=== PATIENT | male | born 1975 | race African-American/Black ===

== ENCOUNTER 2018-08-08 17:15 | Emergency (ER) | payer MEDICAID ==
[2018-08-08 18:33] LABS: APPEARANCE,URINE CLEAR; BILIRUBIN,URINE NEGATIVE (NEGATIVE); COLOR,URINE YELLOW; GLUCOSE, URINE NEGATIVE (NEGATIVE); KETONES,URINE 20 mg/dL (NEGATIVE); LEUKOCYTE ESTERASE,URINE NEGATIVE (NEGATIVE); NITRITE,URINE NEGATIVE (NEGATIVE); PROTEIN,URINE NEGATIVE (NEGATIVE); URINE SPECIFIC GRAVITY 1.023
[2018-08-08 18:35] LABS: ABSOLUTE LYMPHOCYTES (AUTO) 0.8 10^3/uL (0.5-4.7); ABSOLUTE MONOCYTES (AUTO) 0.5 10^3/uL (0.1-1.4); ABSOLUTE NEUT (AUTO) 6.7 10^3/uL (1.7-8.2); BASOPHILS % (AUTO) 0.3 % (0-2); EOSINOPHILS % (AUTO) 0.1 % (0-6); HEMATOCRIT 42.5 % (37.9-51.0); HEMOGLOBIN 14.5 g/dL (13.5-17.0); LYMPHOCYTES % (AUTO) 9.8 % (13-45); MEAN CORPUSCULAR HEMOGLOBIN 32.2 pg (27.0-33.4); MEAN CORPUSCULAR HGB CONC 34.1 g/dL (32.0-36.0); MEAN CORPUSCULAR VOLUME 95 fl (80-97); MONOCYTES % (AUTO) 6.1 % (3-13); PLATELET COUNT 202 10^3/uL (150-450); RED CELL DISTRIBUTION WIDTH 13.9 % (11.5-14.0); SEGMENTED NEUTROPHILS % (AUTO) 83.7 % (42-78); TOTAL CELLS COUNTED % (AUTO) 100 %; WHITE BLOOD COUNT 8.1 10^3/uL (4.0-10.5)
[2018-08-08 18:56] LABS: ALANINE AMINOTRANSFERASE 41 U/L (21-72); ALKALINE PHOSPHATASE 49 U/L (38-126); ANION GAP 8 (5-19); ASPARTATE AMINO TRANSFERASE 42 U/L (17-59); BILIRUBIN,DIRECT 0.2 mg/dL (0.0-0.4); BILIRUBIN,TOTAL 0.6 mg/dL (0.2-1.3); BLOOD UREA NITROGEN 16 mg/dL (7-20); CALCIUM 9.6 mg/dL (8.4-10.2); CARBON DIOXIDE 26 mmol/L (22-30); CHLORIDE 105 mmol/L (98-107); GLUCOSE 97 mg/dL (75-110); POTASSIUM 3.9 mmol/L (3.6-5.0); SODIUM 139.4 mmol/L (137-145); TOTAL PROTEIN 7.5 g/dL (6.3-8.2)
[2018-08-08 18:57] LABS: ACETAMINOPHEN < 10 ug/mL (10-30); ALCOHOL < 10 mg/dL (NONE DETECTED); SALICYLATE < 1.0 mg/dL (2.0-20.0); URINE AMPHETAMINES SCREEN NEGATIVE; URINE BARBITURATES SCREEN NEGATIVE; URINE BENZODIAZEPINES SCREEN NEGATIVE; URINE COCAINE SCREEN NEGATIVE; URINE MARIJUANA (THC) SCREEN UNCONFIRMED POSITIVE; URINE METHADONE SCREEN NEGATIVE; URINE PHENCYCLIDINE SCREEN NEGATIVE
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
[2018-08-08] MEDS ORDERED: OLANZAPINE INJ/PF 10 MG SDV IM ONE (20:36)
[2018-08-08] MEDS ORDERED: CHLORPROMAZINE HCL INJ 25 MG/1 ML AMPULE IM ONE (20:37)
--- NOTE | 2018-08-08 20:56 | EKG REPORT ---
SEVERITY:- ABNORMAL ECG - SINUS RHYTHM RIGHT ATRIAL ABNORMALITY : Confirmed by: Jaydon Barnes 08-Aug-2018 20:54:19
[2018-08-08] MEDS: BENZTROPINE MESYLATE INJ 2 MG/2 ML AMPULE IM SCH (23:24)
--- NOTE | 2018-08-09 09:26 | ER Document Report ---
Doctor's Note Notes: 08/09/18 09:25 42-year-old male who presents with agitation, hallucinations, being noncompliant with medications. Vital signs as recorded. Labs as recorded. Positive for marijuana. Patient was given medications to calm him down last evening. Patient is currently calm and cooperative at this time. Awaiting psychiatric evaluation.
[2018-08-09] MEDS: OLANZAPINE 5 MG TABLET PO SCH ×2 (10:48→18:44)
[2018-08-09] MEDS: CHLORPROMAZINE HCL 50 MG TABLET PO SCH ×2 (10:48→18:44)
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
[2018-08-09] MEDS ORDERED: LORAZEPAM INJ 2 MG/1 ML VIAL IM ONE (14:13)
[2018-08-09] MEDS ORDERED: MIDAZOLAM 2 MG/2 ML INJ IM ONE (19:54)
[2018-08-09] MEDS ORDERED: DIPHENHYDRAMINE HCL 50 MG/ML VIAL IM ONE (19:54)
[2018-08-09] MEDS ORDERED: CHLORPROMAZINE HCL 50 MG TABLET PO SCH (20:25)
[2018-08-09] MEDS ORDERED: OLANZAPINE 5 MG TABLET PO SCH (20:27)
[2018-08-09] MEDS: BENZTROPINE MESYLATE INJ 2 MG/2 ML AMPULE IM SCH (21:20)
[2018-08-10] MEDS ORDERED: CHLORPROMAZINE HCL INJ 25 MG/1 ML AMPULE IM ONE (01:13)
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
[2018-08-10] MEDS: CHLORPROMAZINE HCL 50 MG TABLET PO SCH (11:10)
[2018-08-10] MEDS: OLANZAPINE 5 MG TABLET PO SCH ×2 (11:10→17:56)
--- NOTE | 2018-08-10 21:54 | ER Document Report ---
Doctor's Note Notes: 08/10/18 21:54 Patient continues to threaten staff, threatening nurse Lana repeatedly. He is currently acting in a dangerous manner for both staff and his own safety. He will be placed in physical restraints for the safety of our staff as well as his own safety.
[2018-08-10] MEDS: BENZTROPINE MESYLATE INJ 2 MG/2 ML AMPULE IM SCH (23:08)
[2018-08-10] MEDS: FLUPHENAZINE HCL 2.5 MG TABLET PO SCH (23:08)
[2018-08-11] MEDS: FLUPHENAZINE HCL 2.5 MG TABLET PO SCH ×2 (08:06→21:41)
[2018-08-11] MEDS: OLANZAPINE 5 MG TABLET PO SCH (09:57)
--- NOTE | 2018-08-11 10:28 | ER Document Report ---
Doctor's Note Notes: 08/11/18 10:27 Rounds: Chart reviewed and patient interviewed. Patient is being evaluated for agitation and hallucinations. He is currently being restrained with leather restraints. He is IVC. Lab studies were essentially normal except for being positive for marijuana. Vital signs of all been essentially normal. Patient is currently being treated with Zyprexa 5 mg twice a day and Cogentin 1 mg daily. Thorazine has been added to that regimen. Patient appears to be medically stable for transfer or discharge. Ailin Barajas MD
[2018-08-11] MEDS ORDERED: FLUPHENAZINE DECANOATE INJ 125 MG/5 ML VIAL IM ONE (12:24)
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
[2018-08-11] MEDS: BENZTROPINE MESYLATE INJ 2 MG/2 ML AMPULE IM SCH (21:10)
[2018-08-11] MEDS ORDERED: LORAZEPAM INJ 2 MG/1 ML VIAL IM ONE (23:02)
[2018-08-11] MEDS ORDERED: HALOPERIDOL LACTATE INJ 5 MG/1 ML VIAL IM ONE (23:03)
[2018-08-11] MEDS ORDERED: DIPHENHYDRAMINE HCL 50 MG/ML VIAL IM ONE (23:04)
[2018-08-11] MEDS ORDERED: LORAZEPAM 1 MG TABLET PO ONE (23:33)
[2018-08-11] MEDS ORDERED: HALOPERIDOL 5 MG TABLET PO ONE (23:33)
[2018-08-12] MEDS ORDERED: DIPHENHYDRAMINE HCL 50 MG/ML VIAL IM ONE (01:48)
[2018-08-12] MEDS ORDERED: ACETAMINOPHEN 325 MG TABLET PO ONE (06:24)
[2018-08-12] MEDS: FLUPHENAZINE HCL 2.5 MG TABLET PO SCH ×2 (07:58→22:48)
--- NOTE | 2018-08-12 09:55 | ER Document Report ---
Doctor's Note Notes: 08/12/18 09:54 Patient seen and evaluated by myself. Vital signs are stable. No issues overnight per nursing. Patient has a history of delusions. He has been manic while in the emergency department. Behavioral health was consulted and made medication recommendations. We are unable to stabilize him on the medications. They feel that the patient now needs to be treated inpatient.
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
--- NOTE | 2018-08-12 19:39 | EKG REPORT ---
SEVERITY:- NORMAL ECG - SINUS RHYTHM : Confirmed by: Shaye Dejesus MD 12-Aug-2018 19:39:06
[2018-08-12] MEDS: BENZTROPINE MESYLATE INJ 2 MG/2 ML AMPULE IM SCH (22:48)
[2018-08-13] MEDS: FLUPHENAZINE HCL 2.5 MG TABLET PO SCH (08:28)
--- NOTE | 2018-08-13 09:39 | ER Document Report ---
Doctor's Note Notes: 08/13/18 09:38 Patient seen and examined, vital signs reviewed. Patient at this time, continues to be in a manic state, pressured speech, rambling on about different situations and past stories, tangential thinking. Difficult to redirect. Patient has been having behavioral issues during his ED course, as noted above, prior notes reviewed. Discussed with behavioral health team, he was on Prolixin, however did not seem to be working for him, we will switch him to Thorazine 100 mg every 6 IM, and Rosalesentin did 2 mg daily IM, as there is concern of possible noncompliance, will also add clonidine 0.1 mg patch daily. We will continue to monitor the patient, adjust medications as needed, to control his manic state.
[2018-08-13] MEDS ORDERED: CLONIDINE 0.1 MG/24 HR PATCH.TDWK TD ONE (09:41)
--- NOTE | 2018-08-13 10:05 | PSYCHOLOGICAL NOTE ---
Psych Note - Psych Note Date seen by psych provider: 08/13/18 Time seen by psych provider: 17:00 Psych Note: Reason for consult:IVC Contact Permissions: Mother Jolene Lopez [phone] Patient is a 42 year old male who is in the ED on IVC for delusions, flight of ideas, pressured speech, destroying property and having been off medication for 4 months. Chart Review Conducted: Toxicology screen was positive for THC. Patient was restrained once on 08/10/18 at 22:00 until 08/11/2018 at 12:30 for not following directions, leaving his room, making inappropriate sexual gestures and comments, being verbally aggressive with staff and demonstrating aggressive behaviors (ie making a fist with one hand and hitting his other open hand). Medication recommendations per [facility]'s psychiatric provider, Dr. Palafox are as follows: Please discontinue Prolixin Continue Cogentin 2mg QHS Please start Thorazine 100mg every 6 hours Please start Clonidine patch 0.1mg once every 24 hours Diagnosis: 296.80 (F31.9) Unspecified Bipolar and Related Disorder by History per mother's collateral from 05/09/11 ED visit 292.9 (F12.99) Unspecified Cannabis Related Disorder Impression\plan: There is concern the patient has been cheeking his medications or a paradoxical effect has resulted. New medication recommendations have been provided. Clinician notes [facility] staff report patient is redirectable but has significant impulse control, and requires high level of monitoring due to his hyperactivity level. Patient re-evaluated Patient was woken up by clinician. Patient was noted to have difficulty sleeping however he has been sleeping all day today. Patient denies thoughts of wanting to harm himself or others or any difficulty with seeing or hearing things that confuse her scare him. Patient is able to conduct an organized linear conversation. He reports that he plans to return home to his mother's house confirms that he will continue taking the medication will follow up with outpatient mental health services. Patient is not demonstrating any behaviors indicating he is responding to internal stimuli. Patient is recommended for rescind of IVC and is cleared from acute psychiatric services and is recommended to follow-up with outpatient mental services. He has been provided a resource list of area providers including mobile crisis contact information. Clinician notes patient's behaviors throughout [facility] ED stay strongly indicates behavioral aspects. Clinician discussed with patient appropriate behaviors. Dr. Harp was consulted and the care management this patient; attending physicians in agreement with recommendations and disposition.
[2018-08-13] MEDS: CHLORPROMAZINE HCL INJ 25 MG/1 ML AMPULE IM SCH ×2 (10:11→12:54)
[2018-08-13 17:40] VITALS: BP 121/73
== END 2018-08-13 17:32 | disposition home or self-care (01) ==
LOC: ER 17:15
DX: R44.3 Hallucinations, unspecified (principal); R45.1 Restlessness and agitation; F31.9 Bipolar disorder, unspecified; F12.99 Cannabis use, unspecified with unspecified cannabis-induced disorder; F17.200 Nicotine dependence, unspecified, uncomplicated
CPT/HCPCS: 93005 ×2; 99285; 96372; 96374; 36415; 80307 ×4; 85025; 80053; 81001; 93010 ×2; J3490 ×12; J2250; J0515 ×5; J2680; J3230 ×3; J1200 ×2; J2060

== ENCOUNTER 2019-04-22 01:25 | Emergency (ER) | payer MEDICAID ==
[2019-04-22] MEDS ORDERED: HALOPERIDOL LACTATE INJ 5 MG/1 ML VIAL IM PRN (02:08)
[2019-04-22] MEDS ORDERED: LORAZEPAM INJ 2 MG/1 ML VIAL IM PRN (02:08)
[2019-04-22] MEDS ORDERED: DIPHENHYDRAMINE HCL 50 MG/ML VIAL IM PRN (02:08)
[2019-04-22 02:28] LABS: ABSOLUTE EOSINOPHILS # (AUTO) 0.2 10^3/uL (0.0-0.6); ABSOLUTE LYMPHOCYTES (AUTO) 1.5 10^3/uL (0.5-4.7); ABSOLUTE MONOCYTES (AUTO) 0.4 10^3/uL (0.1-1.4); ABSOLUTE NEUT (AUTO) 2.3 10^3/uL (1.7-8.2); BASOPHILS % (AUTO) 1.1 % (0-2); EOSINOPHILS % (AUTO) 4.9 % (0-6); LYMPHOCYTES % (AUTO) 33.6 % (13-45); MEAN CORPUSCULAR HEMOGLOBIN 31.4 pg (27.0-33.4); MEAN CORPUSCULAR HGB CONC 33.4 g/dL (32.0-36.0); MEAN CORPUSCULAR VOLUME 94 fl (80-97); MONOCYTES % (AUTO) 8.7 % (3-13); PLATELET COUNT 201 10^3/uL (150-450); RED BLOOD COUNT 4.15 10^6/uL (4.35-5.55); RED CELL DISTRIBUTION WIDTH 14.2 % (11.5-14.0); SEGMENTED NEUTROPHILS % (AUTO) 51.7 % (42-78); TOTAL CELLS COUNTED % (AUTO) 100 %; WHITE BLOOD COUNT 4.4 10^3/uL (4.0-10.5)
--- NOTE | 2019-04-22 02:28 | ER Document Report ---
ED Psych Disorder / Suicide - General Stated Complaint: IVC Time Seen by Provider: 04/22/19 02:06 Mode of Arrival: Carried Information source: Patient, Law Enforcement Cannot obtain history due to: Uncooperative Notes: HISTORY OF PRESENT ILLNESS: Patient is a 43-year-old male with a past medical history of hernia, bipolar disorder, substance abuse who presents with agitation and aggression with possible both suicidal and homicidal ideations. Patient was found by police to be belligerent and agitated, was making threatening statements that he was going to harm himself and was going to throw knives at people, also reported that he heard voices and was paranoid. Patient was involuntarily committed by police prior to arrival. Onset: Prior to arrival Provocation: Unknown, possibly substance abuse Quality: Hallucinations, suicidal/homicidal ideation Radiation: None Severity: Moderate Timing: Constant SI/HI: Yes Hallucinations: Yes Current therapist: None Current treatment: Yes, Depakote and antipsychotics REVIEW OF SYSTEMS: CONSTITUTIONAL : Denies fever or chills, no sweats. Denies recent illness. EENT: Denies eye, ear, throat, or mouth pain or symptoms. Denies nasal or sinus congestion. CARDIOVASCULAR: Denies chest pain. RESPIRATORY: Denies cough, cold, or chest congestion. Denies shortness of breath, difficulty breathing, or wheezing. GASTROINTESTINAL: Denies abdominal pain. Denies nausea, vomiting, or diarrhea. Denies constipation. GENITOURINARY: Denies difficulty urinating, painful urination, burning, frequency, or blood in urine. MUSCULOSKELETAL: Denies neck or back pain or joint pain or swelling. SKIN: Denies rash or skin lesions. HEMATOLOGIC : Denies easy bruising or bleeding. LYMPHATIC: Denies swollen, enlarged glands. NEUROLOGICAL: Denies altered mental status or loss of consciousness. Denies headache. Denies weakness or paralysis or loss of use of either side. Denies problems with gait or speech. Denies sensory or motor loss. PSYCHIATRIC: Positive for homicidal and suicidal ideations. Positive for substance abuse.. Denies anxiety or stress or depression. All other systems reviewed and negative. PHYSICAL EXAMINATION: GENERAL: Intoxicated and disheveled-appearing, well-nourished and in no acute distress. HEAD: Atraumatic, normocephalic. No scalp deformity, depression, or crepitance. EYES: Pupils are 3 mm and equal/round/reactive to light, extraocular movements intact, sclera anicteric, conjunctiva are normal. ENT: Nares patent bilaterally, oropharynx clear without exudates or palatal petechia. Moist mucous membranes. No tonsil hypertrophy. NECK: Normal range of motion, supple without lymphadenopathy. LUNGS: Breath sounds present, equal, and clear to auscultation bilaterally. No wheezes, rales, or rhonchi. HEART: Regular rate and rhythm without murmurs, rubs, or gallops. 2+ peripheral pulses. Normal capillary refill. ABDOMEN: Soft, nontender, nondistended. Normoactive bowel sounds. No guarding, no rebound. No masses appreciated. BACK: Normal contour, no midline tenderness. Rectal exam deferred. GENITAL/PELVC: Deferred. EXTREMITIES: Normal range of motion, no pitting or edema. No cyanosis. NEUROLOGICAL: No focal neurological deficits. Moves all extremities spontaneously and on command. PSYCH: Agitated mood, normal affect. Will not answer questions or comply with exam. SKIN: Warm, dry, normal turgor, no rashes or lesions noted. ASSESSMENT AND PLAN: This patient is a 43-year-old male who presents with acute agitation and aggression with both hallucinations and suicidal ideations. 1. Will medically clear and maintain involuntary commitment for inpatient treatment. 2. Will observe overnight. TRAVEL OUTSIDE OF THE [place] IN LAST 30 DAYS: No - HPI Patient complains to provider of: Aggression, Agitated Onset: Just prior to arrival Onset was: Sudden Quality of pain: No pain Severity: None Pain Level: Denies Suicide Risk Factors: Bipolar, Chronic illness, Schizophrenia, Substance abuse Normal mood: No - Agitation Associated symptoms: Aggressive, Agitated, Angry, Uncooperative Similar symptoms previously: No Recently seen / treated by doctor: No - Related Data Allergies/Adverse Reactions: No Known Allergies Allergy (Verified 08/08/18 17:22) Past Medical History - General Information source: Patient, Law Enforcement Cannot obtain history due to: Uncooperative - Social History Smoking Status: Current Every Day Smoker Chew tobacco use (# tins/day): No Frequency of alcohol use: Heavy Drug Abuse: Marijuana Lives with: Alone Family History: Reviewed & Not Pertinent Patient has suicidal ideation: Yes Patient has homicidal ideation: Yes - Past Medical History Cardiac Medical History: Reports: None Pulmonary Medical History: Reports: None EENT Medical History: Reports: None Neurological Medical History: Reports: None Endocrine Medical History: Reports: None Renal/ Medical History: Reports: None. Denies: Hx Peritoneal Dialysis Malignancy Medical History: Reports None GI Medical History: Reports: Hx Gastroesophageal Reflux Disease Musculoskeletal Medical History: Reports None Skin Medical History: Reports None Psychiatric Medical History: Reports: Hx Bipolar Disorder, Hx Depression, Hx Schizophrenia Traumatic Medical History: Reports: None Infectious Medical History: Reports: None Surgical Hx: Negative Past Surgical History: Reports: None - Immunizations Immunizations up to date: Yes Hx Diphtheria, Pertussis, Tetanus Vaccination: No Review of Systems - Review of Systems Constitutional: No symptoms reported EENT: No symptoms reported Cardiovascular: No symptoms reported Respiratory: No symptoms reported Gastrointestinal: No symptoms reported Genitourinary: No symptoms reported Male Genitourinary: No symptoms reported Musculoskeletal: No symptoms reported Skin: No symptoms reported Hematologic/Lymphatic: No symptoms reported Neurological/Psychological: See HPI, Anxiety, Hallucinations, Homicidal ideation, Suicidal ideation -: Yes All other systems reviewed and negative Physical Exam - Vital signs Vitals: Temp Pulse Resp BP Pulse Ox 98.0 F 70 18 153/76 H 100 04/22/19 02:26 04/22/19 02:26 04/22/19 02:26 04/22/19 02:26 04/22/19 02:26 Interpretation: Normal Course - Re-evaluation Re-evalutation: 04/22/19 05:00 Patient is medically cleared. - Vital Signs Vital signs: Temp Pulse Resp BP Pulse Ox 98.0 F 70 18 153/76 H 100 04/22/19 02:26 04/22/19 02:26 04/22/19 02:26 04/22/19 02:26 04/22/19 02:26 - Laboratory Result Diagrams: 04/22/19 02:15 04/22/19 02:15 Laboratory results interpreted by me: 04/22/19 04/22/19 04/22/19 02:15 02:15 02:15 RBC 4.15 L Hgb 13.0 L RDW 14.2 H Potassium 3.4 L Urine Blood SMALL H Urine Urobilinogen 2.0 H Salicylates < 1.0 L Acetaminophen < 10 L Discharge - Discharge Clinical Impression: Acute psychosis, Suicidal ideation Condition: Stable Disposition: PSYCH HOSP/UNIT
[2019-04-22 02:37] LABS: APPEARANCE,URINE CLEAR; BILIRUBIN,URINE NEGATIVE (NEGATIVE); COLOR,URINE YELLOW; GLUCOSE, URINE NEGATIVE (NEGATIVE); KETONES,URINE NEGATIVE (NEGATIVE); LEUKOCYTE ESTERASE,URINE NEGATIVE (NEGATIVE); NITRITE,URINE NEGATIVE (NEGATIVE); PROTEIN,URINE NEGATIVE (NEGATIVE); URINE SPECIFIC GRAVITY 1.018
[2019-04-22 02:41] LABS: ALBUMIN 4.4 g/dL (3.5-5.0); ALKALINE PHOSPHATASE 47 U/L (38-126); ANION GAP 8 (5-19); ASPARTATE AMINO TRANSFERASE 31 U/L (17-59); BILIRUBIN,DIRECT 0.1 mg/dL (0.0-0.4); BILIRUBIN,TOTAL 0.5 mg/dL (0.2-1.3); BLOOD UREA NITROGEN 10 mg/dL (7-20); CALCIUM 9.1 mg/dL (8.4-10.2); CARBON DIOXIDE 27 mmol/L (22-30); CHLORIDE 106 mmol/L (98-107); GLUCOSE 93 mg/dL (75-110); POTASSIUM 3.4 mmol/L (3.6-5.0); TOTAL PROTEIN 7.1 g/dL (6.3-8.2)
[2019-04-22 02:47] LABS: ACETAMINOPHEN < 10 ug/mL (10-30); ALCOHOL < 10 mg/dL (NONE DETECTED); SALICYLATE < 1.0 mg/dL (2.0-20.0)
[2019-04-22 02:50] LABS: URINE AMPHETAMINES SCREEN NEGATIVE; URINE BARBITURATES SCREEN NEGATIVE; URINE BENZODIAZEPINES SCREEN NEGATIVE; URINE COCAINE SCREEN NEGATIVE; URINE MARIJUANA (THC) SCREEN UNCONFIRMED POSITIVE; URINE METHADONE SCREEN NEGATIVE; URINE PHENCYCLIDINE SCREEN NEGATIVE
[2019-04-22] MEDS: CEPHALEXIN 500 MG CAPSULE PO SCH ×4 (06:18→18:36)
--- NOTE | 2019-04-22 10:09 | PSYCHOLOGICAL NOTE ---
Psych Note - Psych Note Date seen by psych provider: 04/22/19 Time seen by psych provider: 07:10 - Chart review at 0710. Interaction with patient at 0815. Psych Note: Presenting Problem: IVC by mother for hx of Bipolar and Schizophrenia, noncompliant with medications/treatment, hears voices that tell him to do bad things, throws knives at others, destroys property, talks to self and abuses alcohol all day every day. UDS positive for Cannabis. Patient belligerent and made repulsive statements towards staff and this clinician. He was seen by [facility] 08/08/18 for IVC and similar etiology, then noted Schizoaffective and Polysubstance Hx, was held for 5 days and had multiple medication adjustments (to include numerous antipsychotics: Zyprexa, Thorazine, Prolixin PO and Deconoate). Diagnosis: Schizoaffective Disorder, Bipolar Type Polysubstance Use Cannabis Use Disorder, Severe (per UDS) Alcohol Use Disorder, Severe (per IVC documentation) Medication recommendations made by the psychiatric medication provider, Dr. Miguel wilkins MD., includes: Add Thorazine 100MG every 6 hours scheduled IM for psychosis/agitation Add Cogentin 2MG daily IM to curb tremor side effects often associated with antipsychotic medications Add Clonidine 0.1MG patch every 24 hours for calming effect Impression/Plan: Recommendation to maintain IVC and seek placement. Patient has a Hx of Schizoaffective and polysubstance use, being noncompliant with medication/treatment, IVC noted active psychosis and he presented belligerent. Consulted with Dr. Harp regarding the management and care of patient. ED Physician in agreement with recommendations.
--- NOTE | 2019-04-22 12:37 | ER Document Report ---
Doctor's Note Notes: 04/22/19 12:36 PHYSICAL EXAMINATION: GENERAL: Appears well, healthy, well-nourished, no acute distress. LUNGS: Equal breath sounds bilaterally and clear to auscultation. No wheezes rales or rhonchi. CARDIOVASCULAR: S1-S2, regular rate, regular rhythm. Radial pulses 2+, normal. ABDOMEN: Normoactive bowel sounds. Soft, nontender, no guarding, no rebound tenderness, and no masses palpated. PSYCH: Repetitive speech. 04/22/19 17:04 Mental health has recommended Thorazine 100 mg every 6 hours, Cogentin 2 mg daily, clonidine 0.1 mg patch every 24 hours. Patient will be held overnight and waiting for placement.
[2019-04-22] MEDS: CLONIDINE 0.1 MG/24 HR PATCH.TDWK TD SCH (18:37)
[2019-04-22] MEDS: CHLORPROMAZINE HCL INJ 25 MG/1 ML AMPULE IM SCH ×2 (18:40→23:29)
[2019-04-23] MEDS: CHLORPROMAZINE HCL INJ 25 MG/1 ML AMPULE IM SCH ×4 (05:04→23:22)
[2019-04-23] MEDS: CEPHALEXIN 500 MG CAPSULE PO SCH ×3 (09:23→17:42)
[2019-04-23] MEDS ORDERED: BENZTROPINE MESYLATE INJ 2 MG/2 ML AMPULE IM SCH (10:00)
--- NOTE | 2019-04-23 12:14 | PSYCHOLOGICAL NOTE ---
Psych Note - Psych Note Date seen by psych provider: 04/23/19 Time seen by psych provider: 07:20 - Observed aptient at 0720. Chart review at 0803. Psych Note: Presenting Problem: IVC by mother for hx of Bipolar and Schizophrenia, noncompliant with medications/treatment, hears voices that tell him to do bad things, throws knives at others, destroys property, talks to self and abuses alcohol all day every day. UDS positive for Cannabis. Patient continued to be belligerent and make repulsive statements towards staff. No change form yesterday. Diagnosis: Schizoaffective Disorder, Bipolar Type Polysubstance Use Cannabis Use Disorder, Severe (per UDS) Alcohol Use Disorder, Severe (per IVC documentation) Impression/Plan: Recommendation to maintain IVC and seek placement. Medications just started yesterday. Patient continued to be verbally aggressive, belligerent and loud. He did not refuse medications which have been administered IM and patch form due to history of noncompliance and need for stabilization. Consulted with Dr. Harp regarding the management and care of patient. ED Physician in agreement with recommendations.
--- NOTE | 2019-04-23 14:19 | ER Document Report ---
Doctor's Note Notes: 04/23/19 14:18 PHYSICAL EXAMINATION: GENERAL: Appears well, healthy, well-nourished, no acute distress. LUNGS: Equal breath sounds bilaterally and clear to auscultation. No wheezes rales or rhonchi. CARDIOVASCULAR: S1-S2, regular rate, regular rhythm. Radial pulses 2+, normal. ABDOMEN: Normoactive bowel sounds. Soft, nontender, no guarding, no rebound tenderness, and no masses palpated. PSYCH: Repetitive speech. 04/22/19 17:04 Vital signs stable. Nursing notes reviewed. No medical concerns when assessing patient. Physical exam is benign. Patient is awaiting placement by mental health team. Patient appears to be medically stable.
[2019-04-23] MEDS: CLONIDINE 0.1 MG/24 HR PATCH.TDWK TD SCH (16:47)
[2019-04-23] MEDS: CHLORPROMAZINE HCL 50 MG TABLET PO SCH (23:32)
[2019-04-24] MEDS: CHLORPROMAZINE HCL 50 MG TABLET PO SCH ×2 (04:58→10:36)
[2019-04-24] MEDS: CHLORPROMAZINE HCL INJ 25 MG/1 ML AMPULE IM SCH ×2 (04:59→11:00)
[2019-04-24 05:23] VITALS: BP 144/76
[2019-04-24] MEDS ORDERED: BENZTROPINE MESYLATE 1 MG TABLET PO ONE (09:52)
--- NOTE | 2019-04-24 09:56 | ER Document Report ---
Doctor's Note Notes: 04/24/19 09:53 PHYSICAL EXAMINATION: GENERAL: Well-appearing and in no acute distress. HEAD: Atraumatic, normocephalic. NECK: Normal range of motion, supple without lymphadenopathy LUNGS: CTAB and equal. No wheezes rales or rhonchi. HEART: Regular rate and rhythm without murmurs ABDOMEN: Soft, no tenderness. No guarding, no rebound EXTREMITIES: Normal range of motion, no pitting edema. No cyanosis. BACK: No midline tenderness, no step-off or deformity. NEUROLOGICAL: Cranial nerves grossly intact. Normal speech. PSYCH: Normal mood, tangential speech, no suicidal or homicidal ideation SKIN: Warm, Dry, normal turgor, no rashes or lesions noted Patient reports compliance with taking his medications while here and is requesting oral administration versus intramuscular due to pain at the administration site. Patient denies any suicidal or homicidal ideation. Patient lives at home with mother and feels as though he can manage his symptoms at home. Patient appears medically stable for discharge or transfer pending mental health consultation. Vital signs and diagnostic test results reviewed. 04/24/19 09:56
[2019-04-24] MEDS: CEPHALEXIN 500 MG CAPSULE PO SCH (10:35)
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
== END 2019-04-24 14:40 | disposition home or self-care (01) ==
LOC: ER 01:25
DX: F23 Brief psychotic disorder (principal); F25.9 Schizoaffective disorder, unspecified; F31.9 Bipolar disorder, unspecified; Z79.899 Other long term (current) drug therapy; R45.851 Suicidal ideations; F12.10 Cannabis abuse, uncomplicated; R45.850 Homicidal ideations; F17.200 Nicotine dependence, unspecified, uncomplicated
CPT/HCPCS: 99285; 96372; 36415; 80307 ×4; 85025; 80053; 81001; J3490 ×5; J0515; J3230 ×2; J1200; J1630; J2060

== ENCOUNTER 2019-07-18 11:40 | Emergency (ER) | payer MEDICAID ==
[2019-07-18] MEDS ORDERED: ZIPRASIDONE MESYLATE INJ/PF 20 MG SDV IM ONE ×2 (13:42→13:46)
[2019-07-18 14:30] LABS: ABSOLUTE LYMPHOCYTES (AUTO) 0.7 10^3/uL (0.5-4.7); ABSOLUTE MONOCYTES (AUTO) 0.3 10^3/uL (0.1-1.4); ABSOLUTE NEUT (AUTO) 4.8 10^3/uL (1.7-8.2); BASOPHILS % (AUTO) 0.4 % (0-2); EOSINOPHILS % (AUTO) 0.4 % (0-6); HEMATOCRIT 39.4 % (37.9-51.0); HEMOGLOBIN 13.5 g/dL (13.5-17.0); LYMPHOCYTES % (AUTO) 11.9 % (13-45); MEAN CORPUSCULAR HEMOGLOBIN 31.8 pg (27.0-33.4); MEAN CORPUSCULAR HGB CONC 34.2 g/dL (32.0-36.0); MEAN CORPUSCULAR VOLUME 93 fl (80-97); MONOCYTES % (AUTO) 5.9 % (3-13); PLATELET COUNT 189 10^3/uL (150-450); RED BLOOD COUNT 4.24 10^6/uL (4.35-5.55); RED CELL DISTRIBUTION WIDTH 15.1 % (11.5-14.0); SEGMENTED NEUTROPHILS % (AUTO) 81.4 % (42-78); TOTAL CELLS COUNTED % (AUTO) 100 %; WHITE BLOOD COUNT 5.9 10^3/uL (4.0-10.5)
[2019-07-18 14:51] LABS: ACETAMINOPHEN < 10 ug/mL (10-30); ALBUMIN 4.3 g/dL (3.5-5.0); ALCOHOL < 10 mg/dL (NONE DETECTED); ALKALINE PHOSPHATASE 53 U/L (38-126); ANION GAP 8 (5-19); ASPARTATE AMINO TRANSFERASE 35 U/L (17-59); BILIRUBIN,DIRECT 0.2 mg/dL (0.0-0.4); BILIRUBIN,TOTAL 0.7 mg/dL (0.2-1.3); BLOOD UREA NITROGEN 9 mg/dL (7-20); CARBON DIOXIDE 26 mmol/L (22-30); CHLORIDE 106 mmol/L (98-107); GLUCOSE 103 mg/dL (75-110); POTASSIUM 3.8 mmol/L (3.6-5.0); SALICYLATE < 1.0 mg/dL (2.0-20.0); TOTAL PROTEIN 7.1 g/dL (6.3-8.2)
[2019-07-18 15:27] VITALS: BP 141/73
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
--- NOTE | 2019-07-18 22:54 | EKG REPORT ---
SEVERITY:- NORMAL ECG - SINUS RHYTHM : Confirmed by: Shaye Dejesus MD 18-Jul-2019 22:54:02
== END 2019-07-18 15:57 ==
LOC: ER 11:40
DX: S50.812A Abrasion of left forearm, initial encounter (principal); S50.811A Abrasion of right forearm, initial encounter; S90.512A Abrasion, left ankle, initial encounter; S90.511A Abrasion, right ankle, initial encounter; F20.9 Schizophrenia, unspecified; R41.82 Altered mental status, unspecified; X58.XXXA Exposure to other specified factors, initial encounter
CPT/HCPCS: 93005; 99284; 96372; 36415; 80307 ×3; 85025; 80053; 93010; J3486